=== PATIENT | male | born 1970 | race Caucasian/White ===

== ENCOUNTER 2025-02-28 10:28 | Emergency (ER) | payer OTHER, SELFPAY ==
[2025-02-28 10:31] VITALS: BP 121/83
[2025-02-28] MEDS: NSS 1000 IV (11:18)
--- NOTE | 2025-02-28 11:20 | ED.GENMED ---
History of Present Illness
General
Chief Complaint: Abdominal Pain
Source: patient
Exam Limitations: none
Time Seen by Provider: 02/28/25 11:01
Nursing documentation reviewed up to this point in time: agreed with
History of Present Illness
History of Present Illness:
54-year-old male w h/o HTN presents with lower abdominal pain that began 6 says ago. He describes the area as tender and reports experiencing at least two to three episodes of chills followed by sweating yesterday, with a recorded temperature of
99�F. The patient is -affiliated and is part of the [facility]. He rates his pain as mild when at rest, but describes increased pain upon palpation or certain movements. The patient reports relief from pain by adjusting his
sitting position. He has not experienced any nausea, vomiting, or urinary difficulties, nor any problems with bowel movements or visible blood.
Past History
Past History
ED Past Medical History: HTN
Social History
Tobacco: Non-smoker
Alcohol: Occasional
Personal:
Living: with family
Employment: Employed
Review of Systems
Review of Systems
Allergies reviewed?: Yes
All Other Systems: ROS reviewed and negative except as documented in HPI and ROS
Constitutional: Reports chills
Respiratory: Denies trouble breathing
Cardiac: Denies chest pain
ABD/GI: Reports abdominal pain; Denies nausea, vomiting, diarrhea, constipated, bloody stools, black stools or anorexia
: Denies dysuria, frequency or difficulty voiding
Musculoskeletal: Reports no symptoms
Skin: Reports no symptoms
Neurological: Reports no symptoms
Phy Exam
Physical Exam
Physical Exam:
GENERAL: No acute distress. A&Ox3.
CONSTITUTIONAL: Afebrile.
EYES: clear, conjunctivae normal
ENMT: moist mucus membranes
RESPIRATORY: Regular respirations, nonlabored, lungs clear.
CARDIOVASCULAR: Regular rate and rhythm, no murmurs, no rubs.
GI: Soft, tender to palpate mid to right abdomen, normal BS
MUSCULOSKELETAL: Moves with ease. Well perfused.
SKIN: Warm, dry, pink
PSYCH: Normal mood and affect. Well kept, interactive and appropriate
NEUROLOGIC: Awake, alert and oriented. No focal neurological deficits
Course
Orders/Labs/Results
Orders:
Orders
02/28/25 11:10
CT Abd/Pel (IV only)-DH only Urgent
Comment:
Reason For Exam: mid to right abdominal pain 1 week
0.9% Sodium Chloride 1000 ml [Nss] 1,000 ml IV BOLUS
02/28/25 11:19
Complete Blood Count/With Diff Urgent
Comprehensive Metabolic Panel Urgent
Lipase Urgent
02/28/25 14:09
Piperacillin/Tazo 3.375 Gram [Zosyn] 3.375 gram in 50 ml IV NOW
Abnormal Lab Results
02/28/25
11:19
Absolute Lymphs (auto) 1.1 L 10^3/uL
(1.2-3.4)
Absolute Monos (auto) 0.9 H 10^3/uL
(0.1-0.6)
Lymphocytes % 13.9 L %
(20.5-51.1)
Monocytes % 10.9 H %
(1.7-9.3)
Glucose 119 H mg/dl
(70-99)
Total Bilirubin 2.2 H mg/dl
(0.2-1.3)
ALT 187 H U/L
(0-50)
Alkaline Phosphatase 191 H U/L
(38-126)
02/28/25 11:19
02/28/25 11:19
Vital Signs
Initial and Last Documented VS:
Initial Vital Signs
Temp Pulse Resp BP Pulse Ox
98.2 F 94 16 121/83 96
02/28/25 10:31 02/28/25 10:31 02/28/25 10:31 02/28/25 10:31 02/28/25 10:31
Last Documented Vital Signs
Temp Pulse Resp BP Pulse Ox
98.2 F 80 15 128/82 94
02/28/25 10:31 02/28/25 13:39 02/28/25 13:39 02/28/25 13:39 02/28/25 13:39
MDM/Problems Addressed
Differential Diagnosis Includes:
Appendicitis, diverticulitis, colitis, gallbladder disease
MDM/Problems Addressed:
54-year-old male w h/o HTN presents with lower abdominal pain that began 6 says ago. He describes the area as tender and reports experiencing at least two to three episodes of chills followed by sweating yesterday, with a recorded temperature of
99�F. The patient is -affiliated and is part of the [facility]. He rates his pain as mild when at rest, but describes increased pain upon palpation or certain movements. The patient reports relief from pain by adjusting his
sitting position. He has not experienced any nausea, vomiting, or urinary difficulties, nor any problems with bowel movements or visible blood.
Afebrile, NAD
1:45 PM:
CBC normal
CMP with mildly elevated liver enzymes, bilirubin
Lipase normal
CT scan showing acute appendicitis
Consulted Gen. Surgery Dr. Mahan
2:30 PM:
Dr. Mahan in. Pt will be given IV Zosyn then discharged on Augmentin as he wants to go to a hospital closer to his home. He is stable, not uncomfortable and OK for discharge
Chronic conditions affecting care: HTN
*Pulse Oximetry
SaO2: 96
Oxygen Mode of Delivery: Room air
Patient hypoxic: not evaluated
*Critical Care Note
Total Time (30-74mins, 75-104mins- exclusive of procedures): Not Applicable
ED Attending Note
-
Portions of this chart may have been created with voice recognition software.� Occasional wrong word or��sound alike� substitutions may have occurred due to the inherent limitations of voice recognition software.
Discharge Plan
Departure
Patient Disposition: Home (Routine Discharge)
Date of Disposition: 02/28/25
Time of Disposition: 13:54
Patient with high blood pressure during this ER visit?: No
Condition: Good
Discharge Problem:
Acute appendicitis
Instructions: Appendicitis in adults
Prescriptions:
New
amoxicillin-pot clavulanate 875-125 mg tablet
1 tab PO BID Qty: 20 0RF
No Action
lisinopril-hydrochlorothiazide 10-12.5 mg tablet
1 tab PO DAILY
Theragen Tablet
1 tab PO DAILY
calcium carbonate [Tums] 200 mg calcium (500 mg) Tablet,Chewable
200 mg PO BIDPRN PRN (Reason: gerd)
ibuprofen [Advil] 200 mg Tablet
200 mg PO TIDPRN PRN (Reason: mild pain)
loratadine [Claritin] 10 mg Tablet
10 mg PO DAILY
omega 0-gps-hcy-fish oil [Fish Oil] 1,000 (120-180) mg Capsule
2 cap PO DAILY
Referrals:
aLurent Bob MD, MD [Family Provider, Internal Medicine]
Activity Restrictions/Additional Instructions:
As Dr. Mahan the surgeon discussed with you, seek medical care immediately if not better in the next 24-48 hours or if your symptoms worsen (pain worsens, fever, vomiting or feeling sicker in any way).
I sent a prescription to your pharmacy for Augmentin antibiotic to take twice a day for 10 days.
Ibuprofen 600 mg (with food) every 6 hours as needed for pain
Interventions
Interventions:
*Risk Screen - Suicide Last Done: 02/28/25 10:33
*General Assessment Last Done: 02/28/25 11:23
*Neglect/Abuse Screening Last Done: 02/28/25 10:33
*ED- Fall Risk Assessment Last Done: 02/28/25 11:23
*Nursing Disposition Last Done: 02/28/25 15:01
HX-Bbgyoo-Agrsczsemk Assessment Last Done: 02/28/25 11:23
Discharge Date and Time
Discharge Date/Time: 02/28/25 15:06
Print Language: GUAMANIAN
[2025-02-28 11:33] LABS: Hematocrit 43.7 % (39.0-52.0); Hemoglobin 15.0 g/dL (13.0-18.0); Mean Corp Hgb Conc. 34.3 g/dL (33.0-37.0); Mean Corpuscular Volume 82.8 fL (80.0-94.0); Nucleated Red Blood Cells % 0 % (-); Platelet Count 282 10^3/uL (130-400); Red Cell Dist. Width 13.1 % (11.5-14.5)
[2025-02-28 12:07] LABS: ALT (SGPT) 187 U/L (0-50); AST (SGOT) 55 U/L (17-59); Albumin 4.7 g/dl (3.5-5.0); Alkaline Phosphatase 191 U/L (38-126); Blood Urea Nitrogen 17 mg/dl (9-20); Calcium 10.2 mg/dl (8.4-10.2); Carbon Dioxide 24 mmol/L (22-30); Chloride 103 mmol/L (98-107); Glucose 119 mg/dl (70-99); Lipase 139 U/L (23-300); Potassium 4.6 mmol/L (3.5-5.1); Sodium 135 mmol/L (135-145); Total Protein 8.1 g/dl (6.3-8.2); eGFR > 60.00
[2025-02-28 13:39] VITALS: BP 128/82
[2025-02-28] MEDS: ZOSYN 50 IV (14:40)
--- NOTE | 2025-02-28 14:41 | CON.GS ---
Medical History
-
Chief Complaint: RLQ abdominal pain
History of Present Illness:
Patient is a 54 yo M with a PMH of HTN who presents to the ER with approximately 1 week of RLQ abdominal pain. He states that his symptoms began last Thursday with some mild discomfort. Pain has progressed since that time. He reports subjective
fevers and chills over the past 24 hours as well as a generalized unwell feeling prompting presentation to the ER. 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 He denies any nausea or
vomiting. Denies any GI symptoms. Denies any personal or family history of IBD or colon cancers.
Past Medical History
Past Medical History: HTN
Past Surgical History: None
Social History
Tobacco: Non-Smoker
Alcohol: Occasional
Drug: None
Personal:
Living: With Family
Employment: Employed
Family History
Family History: Reviewed & Noncontributory
Allergies / Home Medications
Allergy/AdvReac Type Severity Reaction Status Date / Time
No Known Allergies Allergy Unverified 02/28/25 10:29
�Medication �Instructions �Recorded �Confirmed �Type
amoxicillin 875 mg-potassium 1 tab PO BID #20 tabs 02/28/25 Rx
clavulanate 125 mg tablet
calcium carbonate (Tums) 200 mg PO BIDPRN PRN gerd 02/28/25 02/28/25 History
ibuprofen 200 mg tablet (Advil) 200 mg PO TIDPRN PRN mild pain 02/28/25 02/28/25 History
lisinopril 10 1 tab PO DAILY Blood Pressure 02/28/25 02/28/25 History
mg-hydrochlorothiazide 12.5 mg
tablet
loratadine 10 mg tablet (Claritin) 10 mg PO DAILY Allergies 02/28/25 02/28/25 History
omega 0-fle-mnl-fish oil 1,000 mg 2 cap PO DAILY Supplement 02/28/25 02/28/25 History
(120 mg-180 mg) capsule (Fish Oil)
therapeutic multivitamin 1 tab PO DAILY Supplement 02/28/25 02/28/25 History
Review of Systems
-
A 10 point review of systems was completed, and was negative except as per HPI.
Physical Exam
Vital Signs
Temp Pulse Resp BP Pulse Ox
98.2 F 80 15 128/82 94
02/28/25 10:31 02/28/25 13:39 02/28/25 13:39 02/28/25 13:39 02/28/25 13:39
Lab Results
02/28/25 11:19
02/28/25 11:19
WBC 8.1 10^3/uL (4.8-10.8) 02/28/25 11:19
Hgb 15.0 g/dL (13.0-18.0) 02/28/25 11:19
Hct 43.7 % (39.0-52.0) 02/28/25 11:19
Plt Count 282 10^3/uL (130-400) 02/28/25 11:19
Abs Immat Gran (auto) 0.0 10^3/uL (0-0.05) 02/28/25 11:19
Neutrophils % 73.7 % (42.2-75.2) 02/28/25 11:19
Physical Exam
General: Well Developed, Well Nourished and No Apparent Distress
HEENT: Normocephalic and Anicteric
Respiratory: Non Labored Respirations
Cardiac: Regular Rhythm
GI: Soft, Non Distended, Tender (RLQ) and Other (No diffuse peritonitis)
Musculoskeletal: No Edema
Skin: Warm and Dry
Neuro: Nonfocal/Grossly Intact
Data Reviewed
-
CT Scan: Image Personally Visualized and interpreted and Report Reviewed by me
Labs: Labs Reviewed by me
Assessment / Plan
-
Patient is a 54 yo M p/w acute appendicitis
The natural history and pathophysiology of appendicitis was discussed. Anatomy was reviewed. CT scan imaging as a relates to his appendix was reviewed. We discussed that he has fairly severe appendicitis without any radiographic evidence of
perforation or abscess formation. Options for management including medical management with antibiotics versus surgical management with appendectomy were considered and discussed. The pros and cons of both approaches was discussed. Specifically,
we discussed failing medical management with potential perforated appendicitis and abscess formation necessitating a possible IR drainage or a more difficult appendectomy as well as future episodes of appendicitis versus surgical risks.
We discussed a laparoscopic appendectomy. The procedure itself, as well as the risks, benefits, and alternatives was discussed. Specifically, we discussed the risk of bleeding, infection, injury to surrounding structures (bowel), wound
complications, potential ileus formation, and general anesthetic complications. Typical postprocedural recovery including the potential for ileus formation, need for hospitalization, and activity restrictions was discussed.
Mr. Piña states that he would like to avoid surgery at this time and trial antibiotic management. He is interested in getting back to his home area in the [facility] to be closer to his family. As noted above, risks were discussed. We
discussed that should his symptoms not improve over the next 24 to 48 hours that he needs to represent to his local hospital. All questions answered. ED updated.
-- Dose of IV antibiotics in the ED, discharge on 14 days Augmentin
-- Re-present to local hospital if symptoms do not improve over the next 24-48 hours
-- Outpatient follow-up with surgeon recommended to discuss interval appendectomy in 2-3 weeks
== END 2025-02-28 15:06 | disposition home or self-care (01) ==
LOC: EMR 10:28
PROVIDERS: Registered Nurse; EMERGENCY PHYSICIAN Emergency Medicine; FAMILY PHYSICIAN Internal Medicine; OTHER PHYSICIAN Surgery
DX: K35.80 Unspecified acute appendicitis (principal); I10 Essential (primary) hypertension
CPT/HCPCS: 99284; 96361 ×2; 96374; 74177; 80053; 83690; 85025; Q9967